=== PATIENT | male | born 1985 | race Two or more races ===

== ENCOUNTER 2017-12-30 21:41 | Emergency (ER) | payer SELFPAY ==
[2017-12-30 22:27] LABS: INFLUENZA A PATIENT POSITIVE (NEGATIVE); INFLUENZA B PATIENT NEGATIVE (NEGATIVE); OBC FLU VALID
== END 2017-12-30 22:54 | disposition home or self-care (01) ==
LOC: ER 21:41
DX: J09.X2 Influenza due to identified novel influenza A virus with other respiratory manifestations (principal); I10 Essential (primary) hypertension
CPT/HCPCS: 87804; 87804-59; 99284